=== PATIENT | female | born 1995 | race Two or more races ===

== ENCOUNTER 2020-01-10 13:04 | Emergency (ER) | payer OTHER ==
[~2020-01-10] VITALS: Ht 157.5 cm; Wt 64.9 kg
[2020-01-10] MEDS ORDERED: PRIMACARE SOFT1 EACH PO (13:22)
== END 2020-01-10 17:19 | disposition home or self-care (01) ==
LOC: ER 13:04
DX: O23.32 Infections of other parts of urinary tract in pregnancy, second trimester (principal); O26.892 Other specified pregnancy related conditions, second trimester; O26.852 Spotting complicating pregnancy, second trimester; O36.80X1 Pregnancy with inconclusive fetal viability, fetus 1

== ENCOUNTER → 2020-02-09 | Outpatient (CLI) | payer OTHER ==
[~2020-02-09] MED LIST: PRIMACARE SOFT1 EACH PO
== END | disposition home or self-care (01) ==
LOC: PRENATAL 10:00
PROVIDERS: ATTEND Obstetrics & Gynecology Maternal & Fetal Medicine
DX: O35.3XX0 Maternal care for (suspected) damage to fetus from viral disease in mother, not applicable or unspecified (principal); Z36.89 Encounter for other specified antenatal screening

== ENCOUNTER 2020-03-19 20:21 | Outpatient (CLI) | payer OTHER | END 2020-03-20 10:01 | disposition home or self-care (01) | LOC: OBS/DEL 20:21 | PROVIDERS: ATTEND Obstetrics & Gynecology | DX: O26.892 Other specified pregnancy related conditions, second trimester (principal); N93.0 Postcoital and contact bleeding; O26.852 Spotting complicating pregnancy, second trimester ==

== ENCOUNTER 2020-06-26 05:03 | Inpatient (IN) | payer OTHER ==
[~2020-06-26] VITALS: Ht 157.5 cm; Wt 79.8 kg
[2020-06-26] MEDS ORDERED: PRENATAL CAPLE1 EAC1 PO (06:21)
== END 2020-06-28 11:51 | disposition home or self-care (01) | DRG 807 ==
LOC: LDR 05:03 → OB/GYN 05:03
PROVIDERS: ADMIT Obstetrics & Gynecology; ATTEND Obstetrics & Gynecology
PROC: 10E0XZZ Delivery of Products of Conception, External Approach (ICD-10-PCS; principal; 2020-06-26)
PROC: 3E033VJ Introduction of Other Hormone into Peripheral Vein, Percutaneous Approach (ICD-10-PCS; 2020-06-26)
PROC: 0UQMXZZ Repair Vulva, External Approach (ICD-10-PCS; 2020-06-26)
PROC: 4A0HXFZ Measurement of Products of Conception, Cardiac Rhythm, External Approach (ICD-10-PCS; 2020-06-26)
DX: O71.82 Other specified trauma to perineum and vulva (principal); Z37.0 Single live birth; Z3A.39 39 weeks gestation of pregnancy; Z20.828 Contact with and (suspected) exposure to other viral communicable diseases